=== PATIENT | female | born 1965 | race Caucasian/White ===

== ENCOUNTER 2021-07-14 18:09 | Emergency (ER) | payer MEDICARE, OTHER ==
[~2021-07-14 18:09] MED LIST: DECADRON4 MG PO; DEXAMETHASONE4 MG PO; DIFLUCAN200 MG PO; EFFEXOR XR150 MG PO; FEMARA2.5 MG PO; FENOFIBRATE145 MG PO; HYDROXYZINE HCL50 MG PO; KLONOPIN TAB 00.5 MG PO; LIDOCAINE-PRILO30 GM TP; LIORESAL TAB 1010 MG PO; LIPITOR TAB 2020 MG PO; LISINOPRIL10 MG PO; LODINE CAP 300300 MG PO; LYRICA200 MG PO; MIRAPEX0.5 MG PO; NAPROSYN EC 37375 MG PO; PANTOPRAZOLE SO40 MG PO; PHENERGAN 25 MG25 M1 PO; SERTRALINE HCL100 MG PO; SYNTHROID150 MCG PO; ZITHROMAX250 MG PO; ZOFRAN ODT 4 MG4 MG PO; ZOFRAN ODT8 MG PO
[2021-07-14 18:53] LABS: HEMOGLOBIN 15.5 gm/dl (12.3-15.3); RED BLOOD COUNT 5.12 M/UL (4.00-5.10); WHITE BLOOD COUNT 18.3 K/UL (4.5-11.0)
[2021-07-14 19:44] LABS: BUN/CREATININE RATIO 25 (0-10)
[2021-07-15 00:14] LABS: BUN/CREATININE RATIO 26 (0-10)
[2021-07-15] MEDS ORDERED: PREDNISONE 20 M20 MG GT (02:34)
[2021-07-15] MEDS ORDERED: EPINEPHRIN0.3 MG/0.3 INJ (02:39)
== END 2021-07-15 02:54 | disposition home or self-care (01) ==
LOC: ER1 18:09 → CDU 21:47 → ER1 07-15 02:54
PROVIDERS: Family Medicine
DX: T63.441A Toxic effect of venom of bees, accidental (unintentional), initial encounter (principal); E87.6 Hypokalemia; Z20.822 Contact with and (suspected) exposure to COVID-19
CPT/HCPCS: 36600; 71045; 80048; 80053; 82550; 82553; 82803; 83735; 83874; 83880; 84484; 85025; 93005; 96372; 96374; 96375; 96376; 99285; J2930; U0002

== ENCOUNTER → 2021-10-16 | Outpatient (CLI) | payer MEDICARE, OTHER ==
[~2021-10-16] MED LIST changes: +CALCIUM; +CHLORTHALIDONE25 MG PO; +CRESTOR10 MG PO; +EPINEPHRIN0.3 MG/0.3 INJ; -LYRICA200 MG PO; +LYRICA300 MG PO; +PREDNISONE 20 M20 MG GT; +SYNTHROID100 MCG PO; -SYNTHROID150 MCG PO; +VITAMIN B; +VITAMIN D
[2021-10-16 12:36] LABS: HEMOGLOBIN 15.6 gm/dl (12.3-15.3); RED BLOOD COUNT 5.21 M/UL (4.00-5.10); WHITE BLOOD COUNT 9.5 K/UL (4.5-11.0)
[2021-10-16 12:58] LABS: BUN/CREATININE RATIO 20 (0-10)
== END ==
LOC: OPSV2 10-09 12:00 → EDSTATUS 11:00 → OPSV2 11:00
PROVIDERS: Orthopaedic Surgery
DX: Z01.818 Encounter for other preprocedural examination (principal); M17.12 Unilateral primary osteoarthritis, left knee
CPT/HCPCS: 36415; 80048; 85027; 93005

== ENCOUNTER → 2021-10-25 | Day surgery (SDC) | payer MEDICARE ==
[~2021-10-25] VITALS: Ht 170.2 cm; Wt 106.6 kg
[~2021-10-25] MED LIST changes: +ASPIRIN EC81 MG PO; +CYCLOBENZAPRINE10 MG PO; +OXYCODON-ACETA1 EAC1 PO; +ZOFRAN 4 MG TAB4 MG PO
== END | disposition home or self-care (01) ==
LOC: OR 07:14 → EDSTATUS 09:00
PROVIDERS: Orthopaedic Surgery
PROC: 3E0T3BZ Introduction of Anesthetic Agent into Peripheral Nerves and Plexi, Percutaneous Approach (ICD-10-PCS; 2021-10-25)
PROC: 3E0T3BZ Introduction of Anesthetic Agent into Peripheral Nerves and Plexi, Percutaneous Approach (ICD-10-PCS; 2021-10-25)
PROC: 0SRD0J9 Replacement of Left Knee Joint with Synthetic Substitute, Cemented, Open Approach (ICD-10-PCS; principal; 2021-10-25 10:30)
DX: M17.12 Unilateral primary osteoarthritis, left knee (principal); M94.262 Chondromalacia, left knee; Z20.822 Contact with and (suspected) exposure to COVID-19; I10 Essential (primary) hypertension; E78.5 Hyperlipidemia, unspecified; G47.30 Sleep apnea, unspecified; E66.01 Morbid (severe) obesity due to excess calories; G62.9 Polyneuropathy, unspecified; E03.9 Hypothyroidism, unspecified; Z79.899 Other long term (current) drug therapy; Z85.3 Personal history of malignant neoplasm of breast; Z87.891 Personal history of nicotine dependence; Z88.1 Allergy status to other antibiotic agents
CPT/HCPCS: 73560; 97161; 97165; 97530; C1713; J0171; J0690; J1100; J1170; J1885; J2001; J2250; J2405; J2704; J2795; J3010; J7120

== ENCOUNTER → 2022-02-15 | Outpatient (CLI) | payer MEDICARE ==
[2022-02-15 13:17] LABS: HEMOGLOBIN 15.8 gm/dl (12.3-15.3); RED BLOOD COUNT 5.26 M/UL (4.00-5.10); WHITE BLOOD COUNT 7.5 K/UL (4.5-11.0)
[2022-02-15 14:02] LABS: BUN/CREATININE RATIO 26 (0-10)
== END ==
LOC: LAB 12:16
PROVIDERS: Nurse Practitioner Family
DX: M10.9 Gout, unspecified (principal); I10 Essential (primary) hypertension; E03.9 Hypothyroidism, unspecified; E53.8 Deficiency of other specified B group vitamins; E55.9 Vitamin D deficiency, unspecified; Z86.39 Personal history of other endocrine, nutritional and metabolic disease
CPT/HCPCS: 36415; 80053; 80061; 82607; 84439; 84443; 84550; 85025

== ENCOUNTER → 2022-04-04 | Day surgery (SDC) | payer MEDICARE ==
[~2022-04-04] MED LIST changes: +CALCIUM + D3 E1 EACH PO
== END | disposition home or self-care (01) ==
LOC: OR 06:23
PROVIDERS: Internal Medicine Gastroenterology
PROC: 0DJD8ZZ Inspection of Lower Intestinal Tract, Via Natural or Artificial Opening Endoscopic (ICD-10-PCS; principal; 2022-04-04 07:30)
DX: Z12.11 Encounter for screening for malignant neoplasm of colon (principal); K64.1 Second degree hemorrhoids; K64.4 Residual hemorrhoidal skin tags; I10 Essential (primary) hypertension; I25.10 Atherosclerotic heart disease of native coronary artery without angina pectoris; E78.5 Hyperlipidemia, unspecified; E03.9 Hypothyroidism, unspecified; E78.00 Pure hypercholesterolemia, unspecified; E66.9 Obesity, unspecified; Z68.37 Body mass index [BMI] 37.0-37.9, adult; Z79.890 Hormone replacement therapy; Z79.899 Other long term (current) drug therapy; Z85.3 Personal history of malignant neoplasm of breast; Z87.891 Personal history of nicotine dependence; Z88.1 Allergy status to other antibiotic agents; Z88.3 Allergy status to other anti-infective agents
CPT/HCPCS: J2001; J2704; J7040

== ENCOUNTER 2022-04-17 15:46 | Emergency (ER) | payer MEDICARE ==
[2022-04-17 16:25] LABS: HEMOGLOBIN 16.1 gm/dl (12.3-15.3); RED BLOOD COUNT 5.45 M/UL (4.00-5.10); WHITE BLOOD COUNT 11.2 K/UL (4.5-11.0)
[2022-04-17 16:58] LABS: BUN/CREATININE RATIO 31 (0-10)
[2022-04-17] MEDS ORDERED: ZOFRAN ODT 4 MG4 MG SL (19:35)
[2022-04-17] MEDS ORDERED: IBU800 MG PO (19:35)
[2022-04-17] MEDS ORDERED: VISTARIL 50 MG50 MG PO (19:36)
== END 2022-04-17 20:00 | disposition home or self-care (01) ==
LOC: ER1 15:46
PROVIDERS: Physician Assistant Medical
DX: F19.239 Other psychoactive substance dependence with withdrawal, unspecified (principal); Z88.8 Allergy status to other drugs, medicaments and biological substances
CPT/HCPCS: 80053; 82550; 82553; 84439; 84443; 84484; 85025; 93005; 96374; 96375; 99284; J1885; J2405; Q0177